=== PATIENT | female | born 1995 | race Caucasian/White ===

== ENCOUNTER 2024-04-17 09:57 | Emergency (ER) | payer MEDICAID ==
[~2024-04-17] VITALS: Ht 167.6 cm; Wt 75.0 kg
[2024-04-17 10:25] VITALS: O2SAT 100
[2024-04-17 11:03] LABS: CLARITY URINE CLEAR (CLEAR); COLOR URINE YELLOW (YELLOW); GLUCOSE URINE NEGATIVE (NEGATIVE); KETONES URINE NEGATIVE (NEGATIVE); LEUKOCYTE ESTERASE URINE 1+ (NEGATIVE); NITRITE URINE NEGATIVE (NEGATIVE); OCCULT BLOOD URINE NEGATIVE (NEGATIVE); PH URINE 5.5 (4.5-8.0); PROTEIN URINE NEGATIVE (NEGATIVE); SPECIFIC GRAVITY URINE 1.025 (1.005-1.030); UROBILINOGEN URINE 0.2 E.U./dL (0.2-1.0)
[2024-04-17] MEDS: ACETAMINOPHEN 500MG TABLET PO ONE (11:07)
[2024-04-17] MEDS ORDERED: ACET-2708 MT (11:34)
[2024-04-17 11:50] LABS: MUCUS URINE 3+ /lpf (< = 2+); SQUAMOUS EPITHELIAL CELL URINE 2+ /lpf (RARE/1+)
[2024-04-17 11:51] LABS: BACTERIA URINE 3+; RBC URINE 0-2 /hpf (0-2); WBC URINE 0-2 /hpf (0-2)
[2024-04-17 12:00] VITALS: BP 135/76; PULSE 92; RESP 19; TEMP 36.94740; O2SAT 100
== END 2024-04-17 12:08 | disposition home or self-care (01) ==
LOC: ER 09:57
DX: M54.50 Low back pain, unspecified (principal); I10 Essential (primary) hypertension; Z88.6 Allergy status to analgesic agent
CPT/HCPCS: 81003; 99283